=== PATIENT | male | born 1940 | race Asian ===

== ENCOUNTER 2018-05-22 20:03 | Inpatient (IN) | payer OTHER, MEDICAID ==
[~2018-05-22] VITALS: Ht 177.8 cm; Wt 64.2 kg
[2018-05-22 20:06] VITALS: Ht 177.8 cm; Wt 64.2 kg
[2018-05-22 21:07] LABS: BASOPHIL % 0.3 % (0-2); PLATELET COUNT 213 x10^3mcL (130-400)
[2018-05-22 21:08] LABS: RED CELL DISTRIBUTION WIDTH 17.5 % (11.5-14.5)
[2018-05-22 21:10] LABS: CALCIUM 8.6 mg/dL (8.5-10.1); CARBON DIOXIDE 34.3 mmol/L (21-32); CHLORIDE SERUM 103 mmol/L (98-107); CREATININE SERUM 3.9 mg/dL (0.7-1.3); GLUCOSE SERUM 84 mg/dL (74-106); POTASSIUM SERUM 3.3 mmol/L (3.5-5.1); SODIUM SERUM 144 mmol/L (136-145)
[2018-05-22 21:14] LABS: ALBUMIN 3.4 g/dL (3.4-5.0); ALKALINE PHOSPHATASE 86 U/L (46-116); ALT/SGPT 13 U/L (16-63); AST/SGOT 8 U/L (15-37); BILIRUBIN TOTAL 0.69 mg/dL (0.20-1.00); TOTAL PROTEIN, SERUM 7.5 g/dL (6.4-8.2)
[2018-05-23 01:21] LABS: CHOLESTEROL/HDL RATIO 5.3; MAGNESIUM 1.8 mg/dL (1.8-2.4); PHOSPHOROUS 2.9 mg/dL (2.5-4.9)
[2018-05-23 01:28] LABS: T3 TOTAL 1.1 ng/mL
[2018-05-23 01:33] LABS: FREE T4 1.1 ng/dL (0.76-1.46); FREE THYROXINE INDEX 2.5 ug/dL (1.4-4.5); T4(THYROXINE) 7.9 ug/dL (4.7-13.3)
[2018-05-23 02:26] VITALS: BP 129/60
[2018-05-23 02:30] LABS: microscopic required? YES; urine erythrocyte TRACE (NEGATIVE)
[2018-05-23 05:33] VITALS: BP 125/64
[2018-05-23 06:31] LABS: BASOPHIL % 0.5 % (0-2); PLATELET COUNT 205 x10^3mcL (130-400)
[2018-05-23 06:54] LABS: CALCIUM 8.1 mg/dL (8.5-10.1); CARBON DIOXIDE 32.8 mmol/L (21-32); CHLORIDE SERUM 106 mmol/L (98-107); GLUCOSE SERUM 81 mg/dL (74-106); PHOSPHOROUS 4.2 mg/dL (2.5-4.9); POTASSIUM SERUM 3.6 mmol/L (3.5-5.1); SODIUM SERUM 144 mmol/L (136-145)
[2018-05-23 06:58] LABS: CREATININE SERUM 4.7 mg/dL (0.7-1.3)
[2018-05-23 07:01] LABS: RED CELL DISTRIBUTION WIDTH 17.5 % (11.5-14.5)
[2018-05-23 07:52] VITALS: BP 138/81
[2018-05-23 11:59] VITALS: BP 113/59
[2018-05-23 16:58] VITALS: BP 138/68
[2018-05-23] MEDS ORDERED: FLO4 PO (21:04)
[2018-05-23] MEDS ORDERED: ARICEPT5 MG PO (21:04)
[2018-05-23] MEDS ORDERED: ALLOPURINOL100 MG PO (21:04)
[2018-05-23] MEDS ORDERED: PROSCAR5 MG PO (21:04)
[2018-05-23] MEDS ORDERED: METOPROLOL TART25 M1 PO (21:05)
[2018-05-23] MEDS ORDERED: LIPI20 PO (21:05)
[2018-05-23 21:13] VITALS: BP 134/65
[2018-05-24 05:21] VITALS: BP 130/64
[2018-05-24 08:08] LABS: BASOPHIL % 0.4 % (0-2); PLATELET COUNT 195 x10^3mcL (130-400)
[2018-05-24 08:12] LABS: CALCIUM 8.4 mg/dL (8.5-10.1); CARBON DIOXIDE 29.2 mmol/L (21-32); CHLORIDE SERUM 105 mmol/L (98-107); GLUCOSE SERUM 102 mg/dL (74-106); PHOSPHOROUS 4.1 mg/dL (2.5-4.9); POTASSIUM SERUM 3.8 mmol/L (3.5-5.1); SODIUM SERUM 141 mmol/L (136-145)
[2018-05-24 08:20] LABS: CREATININE SERUM 6.1 mg/dL (0.7-1.3)
[2018-05-24 08:23] LABS: RED CELL DISTRIBUTION WIDTH 16.8 % (11.5-14.5)
[2018-05-24 09:13] VITALS: BP 132/67
[2018-05-24 13:45] VITALS: BP 143/67
[2018-05-24 17:16] VITALS: BP 143/67
[2018-05-24 17:39] VITALS: BP 112/57
== END 2018-05-24 18:10 | disposition home or self-care (01) | DRG 313 ==
LOC: ED 20:03 → DU 05-23 00:44
PROVIDERS: Emergency Medicine; Internal Medicine
DX: R07.89 Other chest pain (principal); N18.6 End stage renal disease; I12.0 Hypertensive chronic kidney disease with stage 5 chronic kidney disease or end stage renal disease; E87.6 Hypokalemia; E78.5 Hyperlipidemia, unspecified; D64.9 Anemia, unspecified; Z99.2 Dependence on renal dialysis; Z68.20 Body mass index [BMI] 20.0-20.9, adult
CPT/HCPCS: 83880; 84439; A9500; J2270; J2405; J2785; Q0092